=== PATIENT | male | born 1965 | race African-American/Black ===

== ENCOUNTER 2020-05-11 10:30 | Emergency (ER) | payer OTHER ==
[~2020-05-11] VITALS: Ht 170.2 cm; Wt 109.1 kg
[2020-05-11 10:30] VITALS: BP 127/79
[2020-05-11] MEDS ORDERED: [UNRECOGNIZED DRUG - REMARK] (10:39)
--- NOTE | 2020-05-11 11:59 | REP ---
Clinical: Right lower extremity pain and swelling . Technique: Viveros scale and color Doppler evaluation right lower extremity using linear high frequency transducer. Findings: There is occlusive thrombus extending from the proximal superficial femoral vein through the popliteal vein. 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 Impression: Occlusive thrombus from the proximal superficial femoral vein to popliteal vein. Electronically Signed by Willis Noriega MD 05/11/2020 11:51 A
[2020-05-11] MEDS ORDERED: ELIQ5TAB PO (12:06)
[2020-05-11] MEDS ORDERED: ACET-683 PO (12:07)
[2020-05-11] MEDS ORDERED: APIXABAN 5 MG TAB (ELIQUIS) PO ONE (12:15)
== END 2020-05-11 13:12 | disposition home or self-care (01) ==
LOC: M ED 10:30
DX: I82.411 Acute embolism and thrombosis of right femoral vein (principal); I82.431 Acute embolism and thrombosis of right popliteal vein